=== PATIENT | male | born 1980 | race Two or more races ===

== ENCOUNTER 2022-11-30 19:09 | Emergency (ER) | payer OTHER ==
[~2022-11-30] VITALS: Ht 190.5 cm; Wt 90.7 kg
[2022-11-30] MEDS ORDERED: CRESTOR5 MG PO (19:51)
[2022-11-30] MEDS ORDERED: PEPCID AC20 MG (19:52)
[2022-11-30] MEDS ORDERED: PROTONIX40 MG PO (19:52)
== END 2022-11-30 23:07 | disposition home or self-care (01) ==
LOC: ER 19:09
DX: S92.352A Displaced fracture of fifth metatarsal bone, left foot, initial encounter for closed fracture (principal); X58.XXXA Exposure to other specified factors, initial encounter; Y93.89 Activity, other specified; Y92.013 Bedroom of single-family (private) house as the place of occurrence of the external cause; K21.9 Gastro-esophageal reflux disease without esophagitis; E78.00 Pure hypercholesterolemia, unspecified